=== PATIENT | male | born 1985 | race Caucasian/White ===

== ENCOUNTER 2019-08-03 19:33 | Inpatient (IN) | payer OTHER ==
[~2019-08-03] VITALS: Ht 167.6 cm; Wt 72.3 kg
[~2019-08-03 19:33] MED LIST: PROVENTIL0.09 MG/A1 INH
[2019-08-03 19:34] VITALS: Ht 167.6 cm; Wt 72.3 kg
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
--- NOTE | 2019-08-03 20:13 | NUR ---
HR 125-130 DR THOMAS REQUESTED TO SEE PATIENT.
[2019-08-03 21:02] LABS: BASOPHIL % 0.6 % (0-2); PLATELET COUNT 291 x10^3mcL (130-400); RED CELL DISTRIBUTION WIDTH 12.3 % (11.5-14.5)
--- NOTE | 2019-08-03 21:16 | NUR ---
2049 PT WILL NOT RESPONDE TO VERBAL STIMULATION OR HARD STERNAL RUB, DR THOMAS INFORMED AND ORDER RECEIVED TO GIVE 2MG NARCAN IV. NARCAN GIVEN WITHOUT RESPONCE, PT UNDRESSED AND PREPEPED FOR STRAIGHT CATH FOR UDT. PT BECAME COMBATIVE WITH STAFF AND REFUSED STRAIGHT CATH. PT CONVINCED TO DRINK FIRST BOTTLE OF CHARCOLE. PT REFUSING NGT, DR THOMAS INFORMED WILL CONTINUE TO MONITER CLOSELY
[2019-08-03 21:24] LABS: CALCIUM 8.5 mg/dL (8.5-10.1); CHLORIDE SERUM 104 mmol/L (98-107); CREATININE SERUM 1.1 mg/dL (0.7-1.3); GFR1 > 60 mL/min; GLUCOSE SERUM 109 mg/dL (74-106); POTASSIUM SERUM 3.5 mmol/L (3.5-5.1); SODIUM SERUM 142 mmol/L (136-145)
--- NOTE | 2019-08-03 21:30 | NUR ---
[facility] CALLED, THEY WOULD NOT RECOMMEND ADDITIONAL CHARCOL AT THIS TIME NARCAN NEED FOR RESPIRATORY DEPRESSION ASA, TYLONEL LEVELS ETOH, UDT ABD, PELVIC CT MONITER FOR MIN 6HR DR THOMAS INFORMED OF [place] CONTROL RECOMMENDATIONS
[2019-08-03 21:38] LABS: ALBUMIN 3.8 g/dL (3.4-5.0); ALKALINE PHOSPHATASE 87 U/L (46-116); ALT/SGPT 39 U/L (16-63); AST/SGOT 22 U/L (15-37); BILIRUBIN TOTAL 0.3 mg/dL (0.20-1.00); LIPASE 60 IU/L (73-393); TOTAL PROTEIN, SERUM 8.1 g/dL (6.4-8.2)
--- NOTE | 2019-08-03 21:57 | NUR ---
PT TO CT
[2019-08-04] VITALS (7 sets, daily range): BP systolic 114–136; BP diastolic 72–90
--- NOTE | 2019-08-04 01:50 | NUR ---
DR THOMAS AWARE THE PATIENT HAS NOT VOIDED, LUIS A IN ICU IS AWARE URINE SAMPLE NEEDS TO BE COLLECTED
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
[2019-08-04 02:08] LABS: MAGNESIUM 2.1 mg/dL (1.8-2.4); PHOSPHOROUS 3.4 mg/dL (2.5-4.9)
--- NOTE | 2019-08-04 02:30 | NUR ---
PT MADE AWARE LOWER ABD PAIN D/T URINARY RETENTION, NEED TO PLACE F/C, PT AGREED TO PLACE F/C. 16FR F/C INSERTED AT THIS TIME WITH EASE, 1100ML YELLOW URINE NOTED. URINE SPECIMAN SENT TO LAB. PT TOLERATED WELL.
[2019-08-04 02:40] LABS: microscopic required? YES; urine erythrocyte 1+ (NEGATIVE)
--- NOTE | 2019-08-04 02:45 | NUR ---
ALY ALCALA PT IS SIGNED OFF AND NO LONGER BOOKED. ALY ALCALA STATES TO COLLECT STOOL SPECIMAN AND SEND TO [facility] [place]. DR MASSIEL WOOD.
[2019-08-04 02:49] LABS: AMPHETAMINE QUAL UR POSITIVE (See below)
--- NOTE | 2019-08-04 03:47 | NUR ---
STARTED ON IVF, NS AT 100ML/HR, INTACT AND INFUSING VIA LAC. WILL CONTINUE TO MONITOR.
[2019-08-04 05:59] LABS: CARBON DIOXIDE 27.5 mmol/L (21-32); CHLORIDE SERUM 106 mmol/L (98-107); CREATININE SERUM 0.9 mg/dL (0.7-1.3); GFR1 > 60 mL/min; GLUCOSE SERUM 93 mg/dL (74-106); MAGNESIUM 1.9 mg/dL (1.8-2.4); PHOSPHOROUS 2.5 mg/dL (2.5-4.9); POTASSIUM SERUM 3.6 mmol/L (3.5-5.1); SODIUM SERUM 142 mmol/L (136-145)
--- NOTE | 2019-08-04 06:35 | NUR ---
NO COMPLAINTS NOTED AT THIS TIME. AFEBRILE AND VITAL SIGNS STABLE. SR ON THE MONITOR. IVF INFUSING WELL, SITE CLEAR. NPO MAINTAINED ORDERED. NO N/V NOTED. NO BM NOTED. CORTEZ CATH INTACT AND DRAINING YELLOW COLOR URINE. URINARY OUTPUT 1400ML. RESP. EVEN AND UNLABORED. ON ROOM AIR, NO SOB , NO ACUTE DISTRESS NOTED. .EYES CLOSED, APPEARS ASLEEP, EASILY AROUSABLE. WILL CONTINUE TO MONITOR.
--- NOTE | 2019-08-04 07:25 | NUR ---
PATIENT ORIENTED TO PERSON, PLACE AND TIME. PATIENT COMMUNICATES WITH CLEAR SPEECH. PATIENT DENIES SHORTNESS OF BREATH, NAUSEA/VOMITING OR PAIN AT THIS TIME. TELE # 9 READS NORMAL SINUS RHYTHS. IVF NS IS AT 100ML/HR VIA IV SITE TO LAC. CORTEZ CATH TO GRAVITY DRAINING PALE YELLOW URINE OUTPUT. CALL LIGHT WITHIN REACH. SIDE RAILS UP X3. BED IS AT LOWEST POSITION.
[2019-08-04 08:33] LABS: BASOPHIL % 0.6 % (0-2); PLATELET COUNT 245 x10^3mcL (130-400); RED CELL DISTRIBUTION WIDTH 12.7 % (11.5-14.5)
--- NOTE | 2019-08-04 09:20 | NUR ---
SPOKE WITH POISON CONTROL AND REPORTED MOST RECENT VITALS. RECOMMEDATION IS TO INSERT NGT AND GIVE GO-LYTLY 1-2L HOUR UNTIL STOOL CLEAR OR PAIENT PASSES FOREIGN OBJECT. WILL ENDORSE TO DR VILLAGOMEZ.
--- NOTE | 2019-08-04 09:45 | NUR ---
DR. UMANA IS AT BEDSIDE EXAMING THE PATIENT.
--- NOTE | 2019-08-04 09:59 | NUR ---
DR. POSADAS AND DR. VILLAGOMEZ ARE AT BEDSIDE SEEING THE PATIENT; PATIENT WANTS TO LEAVE THE HOSPITAL AGAINST MEDICAL ADVICE. DR. POSADAS THE RISK SIGNING OUT AMA. THE PATIENT INSISTS ON LEAVING THE HOSPITAL AMA. DR. VILLAGOMEZ WILL OBTAIN AMA FORM.
--- NOTE | 2019-08-04 10:10 | NUR ---
PATIENT ALREADY SIGNED AMA FORM. F/C REMOVED WITH CATH INTACT. IV SITE REMOVED WITH CATH TIP INTACT. PATIENT IS CHANGING TO HIS CLOTHES.
--- NOTE | 2019-08-04 10:14 | NUR ---
PATIENT LEFT THE HOSPITAL AMA WITH STEADY GAIT AND CARRYING ALL HIS BELONGINGS.
--- NOTE | 2019-08-04 10:16 | NUR ---
OPERATIONS LIAISON, LADY HAYWOOD WAS CALLED AND INFORMED THE PATIENT LEFT THE HOSPITAL AMA.
== END 2019-08-04 10:14 | disposition left against medical advice (07) | DRG 816 ==
LOC: ED 19:33 → IC 08-04 00:54
PROVIDERS: Emergency Medicine; ADMIT Internal Medicine
DX: T40.1X1A Poisoning by heroin, accidental (unintentional), initial encounter (principal); F12.10 Cannabis abuse, uncomplicated; R10.9 Unspecified abdominal pain; F15.10 Other stimulant abuse, uncomplicated; T40.7X1A Poisoning by cannabis (derivatives), accidental (unintentional), initial encounter; Z59.0 Homelessness; Z68.26 Body mass index [BMI] 26.0-26.9, adult; Y92.89 Other specified places as the place of occurrence of the external cause
CPT/HCPCS: G0378; G0480; J2310; J2405; J7030; Q0092

== ENCOUNTER 2019-08-03 19:33 | Emergency (ER) | payer OTHER | END 2019-08-04 01:56 | disposition other institution (70) | LOC: ED 19:33 | DX: Z02.89 Encounter for other administrative examinations (principal) ==